=== PATIENT | male | born 1975 | race Caucasian/White ===

== ENCOUNTER 2025-02-16 12:27 | Emergency (ER) | payer OTHER ==
[~2025-02-16] VITALS: Ht 182.9 cm; Wt 81.6 kg
[2025-02-16] MEDS ORDERED: AMOX-CLAV 875-1 EAC1 PO (15:06)
[2025-02-16] MEDS ORDERED: CEFTRIAXONE SODIUM 1,000 MG VIAL IM ONE (15:15)
[2025-02-16] MEDS ORDERED: DEXAMETHASONE SODIUM PHOSPHATE 4 MG/ML VIAL IM ONE (15:15)
== END 2025-02-16 15:43 | disposition home or self-care (01) ==
LOC: ER 12:28
DX: J03.90 Acute tonsillitis, unspecified (principal); R05.8 Other specified cough